=== PATIENT | male | born 1960 | race Caucasian/White ===

== ENCOUNTER 2024-03-13 09:41 | Emergency (ER) | payer OTHER ==
[2024-03-13 10:02] VITALS: TEMP 98
--- NOTE | 2024-03-13 10:44 | ED ---
Lower Extremity Injury HPI - General Chief Complaint: Extremity Injury, Lower Stated Complaint: wound on toe,infection Time Seen by Provider: 03/13/24 10:00 Source: patient, family, RN notes reviewed Mode of arrival: ambulatory Limitations: no limitations - History of Present Illness Initial Comments: This is a 64-year-old male presenting to the emergency department with referral from podiatry and infectious disease with concern for left second toe ost eomyelitis that has been worsening over the past 3 to 4 weeks. Patient was referred for impending amputation. Patient denies fevers, chills, nausea, vomiting. Denies current antibiotic use. patient had outpatient imaging and blood work completed earlier this week. states that he is scheduled to undergo stress testing with cardiology clearance for right abdominal hernia. Review of Systems ROS Statement: Those systems with pertinent positive or pertinent negative responses have been documented in the HPI. ROS Other: All systems not noted in ROS Statement are negative. General Exam - General Exam Comments Initial Comments: Visual Physical Exam Vital signs reviewed General: Well-appearing, nontoxic, no acute distress. Head: Normocephalic, atraumatic Eyes: PERRLA, EOMI ENT: Airway patent Chest: Nonlabored breathing Skin: No visual rash, normal skin tone Neuro: Alert and oriented 3 Musculoskeletal: No gross abnormalities Limitations: no limitations General appearance: alert, in no apparent distress Eye exam: Present: normal appearance, PERRL, EOMI. Absent: scleral icterus, conjunctival injection, periorbital swelling ENT exam: Present: normal exam, mucous membranes moist Neck exam: Present: normal inspection. Absent: tenderness, meningismus, lymphadenopathy Respiratory exam: Present: normal lung sounds bilaterally. Absent: respiratory distress, wheezes, rales, rhonchi, stridor Cardiovascular Exam: Present: regular rate, normal rhythm, normal heart sounds. Absent: systolic murmur, diastolic murmur, rubs, gallop, clicks GI/Abdominal exam: Present: soft, normal bowel sounds. Absent: distended, tenderness, guarding, rebound, rigid Left Foot/Toe exam: Present: swelling, erythema (left) Neurovascular tendon exam: Present: no vascular compromise Back exam: Present: normal inspection Neurological exam: Present: alert, oriented X3, CN II-XII intact Skin exam: Present: warm, dry, intact, normal color. Absent: rash Course Vital Signs 03/13/24 09:56 Temperature 98 F Pulse Rate 95 Respiratory 12 Rate Blood Pressure 170/75 O2 Sat by Pulse 97 Oximetry Medical Decision Making - Medical Decision Making Was pt. sent in by a medical professional or institution (VERONICA Maldonado, HOG CONFINEMENT SYSTEM MANAGER, urgent care, hospital, or care home...) When possible be specific @ -Was advised by overlock elastic attacher to report to the emergency department for further evaluation with concern for osteo latest. Did you speak to anyone other than the patient for history (EMS, parent, family, police, friend...)? What history was obtained from this source @ -No Did you review nursing and triage notes (agree or disagree)? Why? @ -I reviewed and agree with nursing and triage notes Were old charts reviewed (outside hosp., previous admission, EMS record, old EKG, old radiological studies, urgent care reports/EKG's, care home records)? Report findings @ -No old charts were reviewed Differential Diagnosis (chest pain, altered mental status, abdominal pain women, abdominal pain men, vaginal bleeding, weakness, fever, dyspnea, syncope, headache, dizziness, GI bleed, back pain, seizure, CVA, palpatations, mental health, musculoskeletal)? @ -Cellulitis, osteomyelitis, venous insufficiency, this list not all inclusive EKG interpreted by me (3pts min.). @ -None X-rays interpreted by me (1pt min.). @ -None done CT interpreted by me (1pt min.). @ -None done U/S interpreted by me (1pt. min.). @ -None done What testing was considered but not performed or refused? (CT, X-rays, U/S, labs)? Why? @ -None What meds were considered but not given or refused? Why? @ -None Did you discuss the management of the patient with other professionals (professionals i.e. VERONICA Maldonado, HOG CONFINEMENT SYSTEM MANAGER, lab, RT, psych nurse, social media campaign manager, information technology director, teacher, special officer, family preservation caseworker)? Give summary @ -Spoke with sound internal medicine team in regard to admission who has been accepted with i this disease and consult be started on IV antibiotics. Was smoking cessation discussed for >3mins.? @ -No Was critical care preformed (if so, how long)? @ -No Were there social determinants of health that impacted care today? How? (Homelessness, low income, unemployed, alcoholism, drug addiction, transportation, low edu. Level, literacy, decrease access to med. care, assisted, rehab)? @ -No Was there de-escalation of care discussed even if they declined (Discuss DNR or withdrawal of care, Hospice)? DNR status @ -No What co-morbidities impacted this encounter? (DM, HTN, Smoking, COPD, CAD, Cancer, CVA, ARF, Chemo, Hep., AIDS, mental health diagnosis, sleep apnea, morbid obesity)? @ -None Was patient admitted / discharged? Hospital course, mention meds given and route, prescriptions, significant lab abnormalities, going to OR and other pertinent info. @ -Admitted. 64-year-old male with concern for left second toe osteomyelitis. Noted erythema to the second toe. Pulse intact. Patient was offered pain medication and was declined. X-ray and MRI uploaded to system. Laboratory studies ordered and patient is admitted to internal medicine with infectious disease on consult. On further discussion with nursing staff it is reported to me that patient is leaving AGAINST MEDICAL ADVICE after admission. discussed with Dr. Gerard Undiagnosed new problem with uncertain prognosis? @ -No Drug Therapy requiring intensive monitoring for toxicity (Heparin, Nitro, Insulin, Cardizem)? @ -No Were any procedures done? @ -No Diagnosis/symptom? @ -osteomyelitis Acute, or Chronic, or Acute on Chronic? @ -acute Uncomplicated (without systemic symptoms) or Complicated (systemic symptoms)? @ -complicated Side effects of treatment? @ -No Exacerbation, Progression, or Severe Exacerbation? @ -No Poses a threat to life or bodily function? How? (Chest pain, [place], [place], pneumonia, PE, COPD, DKA, ARF, appy, cholecystitis, CVA, Diverticulitis, Homicidal, Suicidal, threat to staff... and all critical care pts) @ -No - Lab Data Result diagrams: 03/13/24 11:03/13/24 12:04 Lab Results 03/13/24 03/13/24 03/13/24 Range/Units 11:30 11: 12:04 WBC 11.0 H (3.8-10.6) k/uL RBC 5.01 (4.30-5.90) m/uL Hgb 14.9 (13.0-17.5) gm/dL Hct 45.5 (39.0-53.0) % MCV 90.8 (80.0-100.0) fL MCH 29.8 (25.0-35.0) pg MCHC 32.8 (31.0-37.0) g/dL RDW 12.9 (11.5-15.5) % Plt Count 262 (150-450) k/uL MPV 7.5 Neutrophils % 74 % Lymphocytes % 17 % Monocytes % 5 % Eosinophils % 2 % Basophils % 1 % Neutrophils # 8.1 H (1.3-7.7) k/uL Lymphocytes # 1.9 (1.0-4.8) k/uL Monocytes # 0.6 (0-1.0) k/uL Eosinophils # 0.2 (0-0.7) k/uL Basophils # 0.1 (0-0.2) k/uL Sodium 137 (137-145) mmol/L Potassium 4.8 (3.5-5.1) mmol/L Chloride 111 H (98-107) mmol/L Carbon Dioxide 19 L (22-30) mmol/L Anion Gap 7 mmol/L BUN 16 (9-20) mg/dL Creatinine 0.75 (0.66-1.25) mg/dL Est GFR (CKD-EPI)AfAm >90 (>60 ml/min/1.73 sqM) Est GFR (CKD-EPI)NonAf >90 (>60 ml/min/1.73 sqM) Glucose 132 H (74-99) mg/dL Plasma Lactic Acid Reese 1.0 (0.7-2.0) mmol/L Calcium 9.6 (8.4-10.2) mg/dL Total Bilirubin 1.0 (0.2-1.3) mg/dL AST 34 (17-59) U/L ALT 24 (4-49) U/L Alkaline Phosphatase 76 (38-126) U/L C-Reactive Protein <0.5 (<1.0) mg/dL Total Protein 8.0 (6.3-8.2) g/dL Albumin 4.3 (3.5-5.0) g/dL Disposition Clinical Impression: Osteomyelitis Disposition: LEFT AGAINST MEDICAL ADVICE Condition: Serious Referrals: Ariane Lee FNPBC [Primary Care Provider] - 1-2 days Decision to Admit Reason: Admit from EC Decision Date: 03/13/24 Decision Time: 13:31
[2024-03-13 12:35] LABS: ALT 24 U/L (4-49); African American GFR (CKD) >90 (>60 ml/min/1.73 sqM); Albumin 4.3 g/dL (3.5-5.0); Anion Gap 7 mmol/L; Blood Urea Nitrogen 16 mg/dL (9-20); C Reactive Protein <0.5 mg/dL (<1.0); Calcium 9.6 mg/dL (8.4-10.2); Carbon Dioxide 19 mmol/L (22-30); Chloride 111 mmol/L (98-107); Glucose 132 mg/dL (74-99); Non-African American GFR(CKD) >90 (>60 ml/min/1.73 sqM); Sodium 137 mmol/L (137-145)
[2024-03-13 12:38] LABS: Basophils # (A) 0.1 k/uL (0-0.2); Basophils % (A) 1 %; Eosinophils # (A) 0.2 k/uL (0-0.7); Eosinophils % (A) 2 %; HCT 45.5 % (39.0-53.0); HGB 14.9 gm/dL (13.0-17.5); Lymphocytes # (A) 1.9 k/uL (1.0-4.8); Lymphocytes % (A) 17 %; MCH 29.8 pg (25.0-35.0); MCHC 32.8 g/dL (31.0-37.0); MCV 90.8 fL (80.0-100.0); Mean Platelet Volume 7.5; Monocytes # (A) 0.6 k/uL (0-1.0); Monocytes % (A) 5 %; Neutrophils # (A) 8.1 k/uL (1.3-7.7); Neutrophils % (A) 74 %; Platelet Count 262 k/uL (150-450); RBC 5.01 m/uL (4.30-5.90); RDW 12.9 % (11.5-15.5)
[2024-03-13 12:49] VITALS: BP 170/75; PULSE 95; RESP 12
[2024-03-13 12:59] LABS: Potassium 4.8 mmol/L (3.5-5.1)
[2024-03-13 13:00] LABS: AST 34 U/L (17-59); Alkaline Phosphatase 76 U/L (38-126)
[2024-03-13] MEDS ORDERED: IBUPROFEN 400 MG TAB PO PRN (13:31)
[2024-03-13] MEDS ORDERED: ACETAMINOPHEN TAB 325 MG TAB PO PRN (13:31)
[2024-03-13] MEDS ORDERED: NALOXONE 0.4 MG/ML 1 ML VIAL IV PRN (13:31)
[2024-03-13] MEDS ORDERED: VANCOMYCIN IV PER PHARMACY 1 EACH MISC MISCELLANE PRN (13:34)
[2024-03-13] MEDS ORDERED: VANCOMYCIN 1,500 MG in SODIUM CHLORIDE 0.9% 500 ML 500 ML IVPB STA (13:38)
[2024-03-13] MEDS ORDERED: VANCOMYCIN 1,500 MG in SODIUM CHLORIDE 0.9% 500 ML 500 ML IVPB SCH (22:00)
[2024-03-14 01:52] LABS: Erythrocyte Sedimentation Rate 35 mm/Hr (0-20)
== END 2024-03-13 14:46 | disposition left against medical advice (07) ==
LOC: EC 09:41
DX: M86.9 Osteomyelitis, unspecified (principal); Z53.29 Procedure and treatment not carried out because of patient's decision for other reasons
CPT/HCPCS: 36415; 80053; 83605; 85025; 85652; 86140; 99283

== ENCOUNTER → 2024-03-19 | Outpatient (CLI) | payer OTHER ==
[~2024-03-19] MED LIST: DOBUTamine DRIP for NUC MED 500 MG in DEXTROSE/WATER 1 250ML.BAG IV PRN
--- NOTE | 2024-03-19 12:57 | CA ---
Transthoracic Echo Report Name: Bijan Uribe Age: 64 Gender: M : 1960 Exam Date: 03/19/2024 11:05 Exam Location: [facility] Ht (in): 72 Wt (lb): 170 Ordering Physician: Tonio Garcia MD ([id number]) Attending/Referring Phys: Jose SIBLEY Tangled Yarn Spool Straightener Lashaun Antonio RDCS Procedure CPT: Indications: Z01.810 R96.81 Cardiac Hx: Technical Quality: Good Contrast 1: Total Dose (mL): Contrast 2: Total Dose (mL): MEASUREMENTS (Male / Female) Normal Values 2D ECHO LV Diastolic Diameter PLAX 4.8 cm 4.2 - 5.9 / 3.9 - 5.3 cm LV Systolic Diameter PLAX 3.1 cm IVS Diastolic Thickness 0.7 cm 0.6 - 1.0 / 0.6 - 0.9 cm LVPW Diastolic Thickness 0.8 cm 0.6 - 1.0 / 0.6 - 0.9 cm LV Relative Wall Thickness 0.3 LVOT Diameter 2.4 cm LV Diastolic Volume MOD BP 109.6 cm??? 67 - 155 / 56 - 104 cm??? LV Systolic Volume MOD BP 37.8 cm??? 22 - 58 / 19 - 49 cm??? LV Ejection Fraction MOD BP 65.5 % >= 55 % LV Cardiac Index MOD BP 3514.2 cm???/min???m??? LV Diastolic Volume MOD 4C 116.4 cm??? LV Systolic Volume MOD 4C 38.4 cm??? LV Ejection Fraction MOD 4C 67.0 % LV Cardiac Index MOD 4C 3821.5 cm???/min???m??? LV Diastolic Length 4C 8.6 cm LV Systolic Length 4C 6.8 cm LV Diastolic Volume MOD 2C 96.8 cm??? LV Systolic Volume MOD 2C 34.9 cm??? LV Ejection Fraction MOD 2C 63.9 % LV Cardiac Index MOD 2C 3030.8 cm???/min???m??? LV Diastolic Length 2C 8.1 cm LV Systolic Length 2C 6.3 cm LA Volume 38.3 cm??? 18 - 58 / 22 - 52 cm??? LA Volume Index 19.4 cm???/m??? 16 - 28 cm???/m??? Ascending Aorta Diameter 3.4 cm DOPPLER AV Peak Velocity 134.1 cm/s AV Peak Gradient 7.2 mmHg AV Mean Velocity 99.8 cm/s AV Mean Gradient 4.3 mmHg AV Velocity Time Integral 26.5 cm LVOT Peak Velocity 105.2 cm/s LVOT Peak Gradient 4.4 mmHg LVOT Velocity Time Integral 20.5 cm LVOT Stroke Volume 94.3 cm??? LVOT Stroke Volume Index 47.4 ml/m??? LVOT Cardiac Index 4621.4 cm???/min???m??? AV Area Cont Eq vti 3.6 cm??? AV Area Cont Eq pk 3.6 cm??? MV Area PHT 4.5 cm??? Mitral E Point Velocity 80.1 cm/s Mitral A Point Velocity 68.0 cm/s Mitral E to A Ratio 1.2 MV Deceleration Time 167.0 ms TR Peak Velocity 197.9 cm/s TR Peak Gradient 15.7 mmHg Right Atrial Pressure 5.0 mmHg Pulmonary Artery Systolic Pressu 20.7 mmHg Right Ventricular Systolic Press 20.7 mmHg PV Peak Velocity 118.9 cm/s PV Peak Gradient 5.7 mmHg FINDINGS Left Ventricle Left ventricular ejection fraction is estimated at 55-60 %. Left ventricular cavity size normal. Left ventricular wall thickness normal. No obvious regional wall motion abnormalities. Right Ventricle Normal right ventricular size and function. Right ventricular systolic pressure within normal limits. Right Atrium Normal right atrial size. Left Atrium Normal left atrial size. Mitral Valve Structurally normal mitral valve. No evidence for mitral valve prolapse. No mitral stenosis. Trace mitral regurgitation. Aortic Valve Trileaflet aortic valve. No aortic valve stenosis or regurgitation. Tricuspid Valve Structurally normal tricuspid valve. No tricuspid stenosis. Trace tricuspid regurgitation. Pulmonic Valve Structurally normal pulmonic valve. No pulmonic stenosis. Trace pulmonic regurgitation. Pericardium No pericardial effusion. Aorta Normal size aortic root and proximal ascending aorta. CONCLUSIONS 1. Normal left ventricular size and systolic function 2. Trace mitral and tricuspid regurgitation Previewed by: Dr. Jacqueline Craig MD (Electronically Signed) Final Date: 19 March 2024 12:56
--- NOTE | 2024-03-19 13:05 | CA ---
Dobutamine Stress Echocardiogram Report Bijan Uribe Age: 64 Gender: M : 1960 Exam Date: 03/19/2024 10:32 Exam Location: [facility] Ordering Physician: Tonio Garcia MD ([id number]) Referring Physician: Jose SIBLEY Geriatric Nurse: Lashaun Antonio RDCS Technologist: Ht (in): 72 Wt (lb): 170 Procedure CPT: Indication: Z01.810 R96.81 ICD-9 Codes: Rhythm: Patient History: HTN, FAMILY HX OF HEART DISEASE Cardiac Medications: Medications in past 24 hours: Contrast: N/A Total Dose (mL): Stress Results Protocol: Dobutamine Peak Dose (???g/kg/min): 30 Duration (min:sec): Atropine:(mg) N/A Target HR: 134 Double Product: [id number] Resting HR: 86 Resting BP: 149 / 75 Peak HR: 147 Peak BP: 189 / 51 Max Predicted HR: 158 93 % Max Predicted HR Stress Summary: The patient's target heart rate was achieved. BP Response: Reason for Termination: Target HR Cardiac Symptoms: NO SYMPTOMS ECG Analysis Resting EKG: Normal sinus rhythm, Right bundle branch block Stress EKG: No abnormal ST/T wave changes with exercise Arrhythmia: None Echo Analysis Base Echo Analysis: Normal resting echocardiogram. Low Echo Anaylsis: Normal wall thickening and motion Peak Echo Analysis: Normal wall augmentation with decrease in the cavity size Recovery Echo: Normal wall motion MEASUREMENTS (Male/Female) Normal Values CONCLUSIONS 1. Nondiagnostic electrocardiographic response to dobutamine infusion 2. Normal stress echocardiogram with no evidence of stress induced ischemia Dr. Jacqueline Craig MD (Electronically Signed) Final Date: 19 March 2024 13:04
== END | disposition home or self-care (01) ==
LOC: RADNMMAIN 09:57
PROVIDERS: ATTEND Internal Medicine Cardiovascular Disease
DX: Z01.810 Encounter for preprocedural cardiovascular examination (principal); I08.1 Rheumatic disorders of both mitral and tricuspid valves; I45.19 Other right bundle-branch block
CPT/HCPCS: 93306; 93351